=== PATIENT | male | born 1960 | race Caucasian/White ===

== ENCOUNTER → 2025-05-16 15:26 | Outpatient (BNVA) | payer MEDICARE, SELFPAY | PROVIDERS: PCP Nurse Practitioner Family; Visit Provider Nurse Practitioner | DX: G56.03 Carpal tunnel syndrome, bilateral upper limbs (principal); R20.2 Paresthesia of skin; Z46.89 Encounter for fitting and adjustment of other specified devices | CPT/HCPCS: 73130; 99204 ==

== ENCOUNTER → 2025-07-05 15:41 | Outpatient (BNVA) | payer MEDICARE, SELFPAY | PROVIDERS: PCP Nurse Practitioner Family; Referring Provider Nurse Practitioner; Visit Provider Specialist | DX: G56.03 Carpal tunnel syndrome, bilateral upper limbs (principal); R20.2 Paresthesia of skin | CPT/HCPCS: 95911 ==

== ENCOUNTER 2025-07-15 12:29 | Outpatient (CLI) | payer MEDICARE, SELFPAY ==
[2025-07-16 13:45] LABS: Alanine Aminotransferase 24 U/L (0-41); Albumin Level 4.3 g/dL (3.5-5.2); Alkaline Phosphatase 57 U/L (40-130); Anion Gap 16.3 (5-19); Aspartate Amino Transferase 20 U/L (0-40); Blood Urea Nitrogen 16 mg/dL (8-23); Calcium 9.0 mg/dL (8.5-10.5); Carbon Dioxide 23 mmol/L (22-29); Chloride 103 mmol/L (98-107); Globulin 3.1 g/dL (1.3-4.6); Glucose 158 mg/dL (65-115); Osmolality Calculated 290 mOsm/kg (285-295); Potassium 4.3 mmol/L (3.5-5.1); Sodium 138 mmol/L (136-145); Total Protein 7.4 g/dL (6.6-8.7)
== END 2025-07-15 12:30 | disposition home or self-care (01) ==
PROVIDERS: PCP Nurse Practitioner Family; Visit Provider Nurse Practitioner
DX: Z01.818 Encounter for other preprocedural examination (principal)
CPT/HCPCS: 36415; 80053; 81001; 85025

== ENCOUNTER 2025-07-28 08:49 | Day surgery (SDC) | payer MEDICARE, SELFPAY ==
[2025-07-28] VITALS (11 sets, daily range): BP systolic 128–179; BP diastolic 67–97; PULSE 61–69; RESP 17–20; TEMP 36.4–36.8; O2SAT 94–99; BMI 46.6
[2025-07-28] MEDS: acetaminophen 1,000 MG/100 ML PIGGYBACK 400 MG IV (09:20)
--- NOTE | 2025-07-28 10:15 | P.HPUD_ITS ---
Surgery/Procedure H&P Update DATE OF PROCEDURE: July 28, 2025 DATE H&P PERFORMED: 07/15/25 H&P UPDATE INFORMATION: I have reviewed H&P completed within last 30 days, I have examined patient prior to procedure, No changes to prior documentation, H&P is in [facility] EMR on date indicated and Risks and benefits of the procedure reviewed PLANNED PROCEDURE: Operation Date: 07/28/25 10:25 Proposed Procedures p Carpal Tunnel Release(Right) - Annalise Resendiz MD Related Problem List Diagnoses 1. Carpal tunnel syndrome on right:
--- NOTE | 2025-07-28 10:19 | ANES.PREANE2 ---
Pre-Anesthetic Assessment Height/Weight: Height 1.73 m Weight 139.253 kg Temp Pulse Resp BP Pulse Ox O2 Del Method 97.6 F 61 18 175/94 94 Room Air 07/28/25 09:07 07/28/25 09:07 07/28/25 09:07 07/28/25 09:07 07/28/25 09:07 07/28/25 09:08 Operation Date: 07/28/25 10:25 Proposed Procedures p Carpal Tunnel Release(Right) - Annalise Resendiz MD Familial anesthetic complications: None Was Beta Pascual taken within 24 hours: N/A Was Clonidine taken within 24 hours: N/A Last intake: Intake Last Liquid Date 07/27/25 Last Liquid Time 23:00 Last Solid Date 07/27/25 Last Solid Time 18:00 Social No alcohol and No tobacco (Chews, last chewed at 2300) Exam alert, oriented x 3, clear to auscultation bilaterally and regular rate & rhythm Airway Submandibular: within normal limits Cervical ROM: Other ( ROM, previous ACDF, large neck) Mallampati: Class III Comments: Comments: Numerous chipped and broken teeth, denies anything loose History/ROS No significant history except as noted and No significant complaints Pulmonary None reported CV/HEM Arrythmia (Bradycardia, HR ~38 at previous hospital) None reported Hepatic None reported GI Gastroesophageal Reflux Disease (None this morning, food related) Metabolic Diabetes Mellitus and Morbid Obesity Musc/skel Lower Back Pain and Osteoarthritis/DJD Neuropsych Neuropathy Anesthetic Plan ASA status: 3 Anesthesia: Anesthesia Evaluation Risk of > 500 ml blood loss (7ml/kg in children): No Medications/Allergies Home Medications ?Medication ?Instructions ?Recorded ?Confirmed ?Last Taken ?Type Bilateral cock-up splints #1 ea 05/16/25 07/15/25 Unknown Rx gabapentin 100 mg capsule 100 mg PO TID 05/16/25 07/28/25 07/28/25 History glipizide 2.5 mg tablet 2.5 mg PO DAILY 05/16/25 07/27/25 07/27/25 History naproxen 500 mg tablet 500 mg PO BID 07/26/25 07/27/25 07/27/25 History tizanidine 4 mg tablet 4 mg PO DAILY 07/26/25 07/27/25 07/26/25 History Allergies Allergy/AdvReac Type Severity Reaction Status Date / Time No Known Allergies Allergy Verified 07/28/25 09:02 Current Medications Generic Name Dose Route Start Last Admin Trade Name Freq PRN Reason Stop Dose Admin Sodium Chloride 1,000 mls @ 30 mls/hr 07/28/25 09:00 07/28/25 09:22 Sodium Chloride 0.9% IV 07/29/25 08:59 30 mls/hr .Q24H MARLON Administration PFSH Anesthesia Medical History (Updated 07/28/25 @ 10:16 by Annalise Resendiz MD) Carpal tunnel syndrome, bilateral Positive Tinel's sign Social History Smoking and tobacco/nicotine status: never used tobacco/nicotine
[2025-07-28] MEDS: ceFAZolin 3,000 MG in sodium chloride 0.9% (100 ml) 100 ML 200 MG IV (10:35)
[2025-07-28] MEDS: BUPivacaine 0.5% INJ 30 mL INJECTION (10:59)
--- NOTE | 2025-07-28 11:31 | PM.OP ---
Operative Report Date of procedure: July 28, 2025 Pre-op diagnosis: Right carpal tunnel syndrome Post-op diagnosis: Right carpal tunnel syndrome Post-op findings: Severe entrapment across the carpal canal either transverse carpal ligament and fibrous tissue within the canal Procedure done: Right carpal tunnel release Implants: None Specimens removed/disposition: None Pathology: None Surgeon: Annalise Resendiz MD Business Rules Developer: None Anesthesia: General (Per LMA, ASA 3) Estimated blood loss (mL): 2 Tourniquet time (min): 22 (At 250 mmHg) IV fluids (mL): 500 Complications: None Findings: Severe entrapment of the median nerve at the wrist with thickened transverse carpal ligament Condition: stable Disposition: PACU (Noted return to same-day surgery for discharge to home) Brief History: This 64-year-old gentleman presented to the clinic complaining of bilateral upper extremity numbness and tingling. Nerve conduction study demonstrated severe entrapment of the right median nerve at the wrist and moderately severe entrapment of the left median nerve at the wrist with normal ulnar nerves. After discussion in the office, the patient wished to proceed with carpal tunnel release. He had failed conservative treatments such as anti-inflammatories, stretching, bracing, and heat versus ice. After discussion, consents were signed and questions were answered in the office. On the morning of surgery, he was given further opportunity to have questions asked and answered. Procedure: The patient was brought to the operating theater. The patient had a general anesthesia per LMA, ASA 3. The arm was exsanguinated, and the tourniquet was elevated to 250 mmHg for a total tourniquet time of 22 minutes. The patient was also given Ancef 3 g preoperatively. The arm was then prepped and draped with DuraPrep in usual fashion with the arm draped free. A surgical pause was performed. At the time, the surgical pause, we confirmed the site and side of surgery. We also confirmed the patient's identity, appropriate and timely administration of preoperative antibiotics and preoperative surgical markings. An incision was then made along the thenar crease. The incision crossed the wrist joint in a curvilinear fashion. Dissection continued through skin and soft tissues using a scalpel. The palmaris longus was identified along with the transverse carpal ligament. Each of these was released carefully to avoid injury to the median nerve. We were able to dissect gently into the carpal canal which was noted to be quite tight with significant compression across the median nerve. The nerve was visualized and was an hourglass shape. There was also thickened fibrous tissue in the canal which was opened along the median nerve. The canal was subsequently palpated to assure there was no bony encroachment upon the canal. The canal was then palpated distally and proximally to assure that my small finger was passed easily without impingement. Finding this to be so, attention was directed to closure. The wound was irrigated with ropivacaine plain. It was then closed with 3-0 nylon in an interrupted mattress fashion. Sterile dressing was then placed consisting of Dermabond, OpSite, fluffed fluffs, sterile soft roll, and an Kannan wrap. The tourniquet was released after 22 minutes. There were no complications. There were no specimens. The procedure was well tolerated. Plan is the patient will be discharged home. Related Problem List Diagnoses 1. Carpal tunnel syndrome on right:
--- NOTE | 2025-07-28 14:37 | ANE.PACU2 ---
Inpatient post-anesthesia follow up: Airway intact: Yes Vital signs: Temperature 97.6 F Pulse Rate 66 Respiratory Rate 17 Blood Pressure 175/92 Pulse Oximetry 96 Oxygen Delivery Me thod Room Air Oxygen Flow Rate 10 Fraction of Inspir ed Oxygen Hydration adequate: Yes Nausea and vomiting: No Pain level: 1 Mental status: Baseline
== END 2025-07-28 12:55 | disposition home or self-care (01) ==
PROVIDERS: PCP Nurse Practitioner Family; Visit Provider Specialist
PROC: (CPT 64721; principal; 2025-07-28 10:25)
DX: G56.01 Carpal tunnel syndrome, right upper limb (principal); R00.1 Bradycardia, unspecified; K21.9 Gastro-esophageal reflux disease without esophagitis; E11.9 Type 2 diabetes mellitus without complications; E66.01 Morbid (severe) obesity due to excess calories; Z68.42 Body mass index [BMI] 45.0-49.9, adult; G62.9 Polyneuropathy, unspecified
CPT/HCPCS: 64721; 36416; 82962; J0131; J0690; J1100; J2405; J2704; J3010; J3490; J7030; J9999

== ENCOUNTER → 2025-08-15 15:42 | Outpatient (BNVA) | payer MEDICARE, SELFPAY | PROVIDERS: PCP Nurse Practitioner Family; Visit Provider Nurse Practitioner | DX: Z98.890 Other specified postprocedural states (principal) | CPT/HCPCS: 99024 ==